=== PATIENT | female | born 1980 | race Caucasian/White ===

== ENCOUNTER → 2016-12-07 | Outpatient (REF) | payer OTHER ==
[2016-12-12 00:06] LABS: BENZODIAZEPINES, URINE SCREEN Negative ng/mL (Cutoff=200); METHADONE, URINE SCREEN Negative ng/mL (Cutoff=300); pH, URINE 5.6 (4.5-8.9)
== END ==
LOC: M LAB REF 17:09
PROVIDERS: ATTEND Nurse Practitioner Adult Health
DX: Z51.81 Encounter for therapeutic drug level monitoring (principal)

== ENCOUNTER → 2016-12-09 | Outpatient (REF) | payer OTHER | LOC: M LAB REF 17:26 | PROVIDERS: ATTEND Nurse Practitioner Adult Health | DX: R10.13 Epigastric pain (principal) ==

== ENCOUNTER → 2019-10-30 | Outpatient (CLI) | payer OTHER, MEDICAID ==
[2019-10-30 11:10] LABS: BASO % 0.2 % (0.0-1.0); EOS # 0.1 10^3/uL (0.0-0.5); EOS % 1.3 % (0.0-3.0); HEMATOCRIT 33.6 % (36.0-47.0); HEMOGLOBIN 10.1 g/dl (12.0-15.5); LYMPH # 2.3 10^3/uL (1.5-5.0); MEAN CORPUSCULAR HEMOGLOBIN 24.5 pg (27.0-33.0); MEAN CORPUSCULAR HGB CONC 30.1 g/dl (32.0-36.5); MEAN CORPUSCULAR VOLUME 81.4 fl (80.0-96.0); MONO # 0.5 10^3/uL (0.0-0.8); MONO % 5.9 % (0.0-5.0); NEUTROPHILS # 5.6 10^3/uL (1.5-8.5); NEUTROPHILS % 65.2 % (36.0-66.0); PLATELET COUNT, AUTOMATED 336 10^3/uL (150-450); RED BLOOD COUNT 4.13 10^6/uL (4.00-5.40); WHITE BLOOD COUNT 8.5 10^3/uL (4.0-10.0)
[2019-10-30 11:24] LABS: HEMOGLOBIN A1c 5.6 %
[2019-10-30 11:40] LABS: ALBUMIN 3.6 GM/DL (3.2-5.2); ALT/SGPT 16 U/L (12-78); BILIRUBIN,TOTAL 0.3 MG/DL (0.2-1.0); BLOOD UREA NITROGEN 14 MG/DL (7-18); CALCIUM LEVEL 8.3 MG/DL (8.5-10.1); CARBON DIOXIDE LEVEL 26 MEQ/L (21-32); CHLORIDE LEVEL 111 MEQ/L (98-107); CHOLESTEROL LEVEL 198 MG/DL (<200); CREATININE FOR GFR 0.69 MG/DL (0.55-1.30); FREE THYROXINE INDEX 2.1 % (1.3-4.8); GLOMERULAR FILTRATION RATE > 60.0 (>60); GLUCOSE, FASTING 86 MG/DL (70-100); HDL CHOLESTEROL 45 MG/DL (>40); LDL CHOLESTEROL 130 MG/DL (<100); NON-HDL-C 153 MG/DL; POTASSIUM SERUM 4.5 MEQ/L (3.5-5.1); SODIUM LEVEL 142 MEQ/L (136-145); T UPTAKE 30 % (30-39); TOTAL PROTEIN 6.7 GM/DL (6.4-8.2); TRIGLYCERIDES LEVEL 114 MG/DL (<150)
[2019-10-31 10:56] LABS: TOTAL 25(OH) VITAMIN D 21.8 NG/ML (30.0-100.0)
== END ==
LOC: M WUC 08:52
PROVIDERS: ATTEND Nurse Practitioner Psychiatric/Mental Health
DX: F32.9 Major depressive disorder, single episode, unspecified (principal)

== ENCOUNTER → 2020-01-02 | Outpatient (CLI) | payer OTHER ==
--- NOTE | 2020-01-02 18:12 | ECGEPIP ---
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
== END ==
LOC: M EKG 12:23
PROVIDERS: ATTEND Nurse Practitioner Psychiatric/Mental Health
DX: F32.9 Major depressive disorder, single episode, unspecified (principal); I45.10 Unspecified right bundle-branch block

== ENCOUNTER 2020-04-06 09:11 | Emergency (ER) | payer OTHER ==
[~2020-04-06] VITALS: Ht 165.1 cm; Wt 102.5 kg
--- OUTSIDE RECORDS SUMMARY | 2020-04-06 09:18 | CCD ---
Author Author Deborah Watters Organization Unknown Address [address] [address] Phone Care Team Providers Care Geotechnical Field Technician Name Role Phone DuongMatilde PCP Allergies, Adverse Reactions, Alerts No Data in Section Problem List Concept Problem Description Status Start Date Created Date Resolv ed Date Snomed Code F33.1 Major Depressive Disorder, Recurrent episode, Moderate Active 06/05/2019 06/05/2019 F60.3 Borderline Personality Disorder Active 01/29/20 20 F43.10 Posttraumatic Stress Disorde r (includes Posttraumatic Stress Disorder for Children 6 Years and Younger) Active 01/29/2020 Z72.0 Tobacco Use Disorder, Mild Active 01/29/2020 F12.10 Cannabis Use Disorder, Mild Active 01/29/2020 F90.9 Unspecified Attention-Deficit/Hyperactivity Disorder Activ e 01/29/2020 Medications No Data in Section Social History Social History Element Description Concept Effective Date Smoking Status Unknown if ever smoked [id number] Immunizations No Data in Section Vital Signs No Data in Section Procedures Date Concept Id Description Targeted Site Concept Targeted Site Concept Type 01/26/2020 50898 Brief Individual Psychotherapy - 30 min CPT Patient has no history of implantable de vices Encounters Encounter Start Date End Date Encounter Type Description Diagnosis Di agnosis Desc Location Author First Name Author Last Name Npid Taxonomy Cod e Taxonomy Desc Phone Number Location Addr1 Location Addr2 Location [facility] Location Sta te Location Zip [id number] 01/26/2020 01/26/2020 45706 Brief Individual Psychoth erapy - 30 min F33.1 Major depressive disorder, recurrent, moderate Communi ty [facility] Duong Clayton [phone] [id number] Elder Counselor [phone] [address] [address] Plan of Treatment No Data in Section Lab Results No Data in Section Instructions No Data in Section Insurance Providers Insurance Id Policy Effective Date Policy Thru Date Company [employer]van [id number] 2019 [employer] Managed Evie marin
--- OUTSIDE RECORDS SUMMARY | 2020-04-06 09:18 | CCD ---
Author Author Deborah Watters Organization Unknown Address [address] [place] [place] [address] Phone Care Team Providers Care Pedorthist Name Role Phone Matilde Watters PCP Allergies, Adverse Reactions, Alerts Concept Allergy Name Reaction Severity Onset Date Status Documentation Date Phone Number Npid Taxonomy Code Taxonomy Desc Author Last Name Author Jacey rst Name Concept Type 005427 Cipro Unknown Active 02/21/2020 [id number] Nurse Practitioner Sydney Marvni RXNORM 308816 bupropion Unknown Active 02/21/2020 [id number] 90 [id number] Nurse Practitioner Sydney Marvin RXNORM 573761 latex Unknown Active 02/21/2020 [id number] 3 [id number] Nurse Practitioner Sydney Marvin FDDC 332997 penicillin G Unknown Active 02/21/2020 [id number] 16 [id number] Nurse Practitioner Sydney Marvin RXNORM Problem List Concept Problem Description Status Start Date Created Date Resolv ed Date Snomed Code F90.2 Attention-Deficit/Hyperactivity Disorder, Combined pre sentation Active 03/18/2020 F43.10 Posttraumatic Stress Disorde r (includes Posttraumatic Stress Disorder for Children 6 Years and Younger) Active 03/18/2020 F33.1 Major Depressive Disorder, Recurrent episode, Moderate Active 06/05/2019 06/05/2019 F60.3 Borderline Personality Disorder Active 03/18/19 21 Z72.0 Tobacco Use Disorder, Mild Active 03/18/2020 F12.10 Cannabis Use Disorder, Mild Active 03/18/2020 Medications No Data in Section Social History Social History Element Description Concept Effective Date Smoking Status Unknown if ever smoked [id number] Immunizations No Data in Section Vital Signs No Data in Section Procedures Date Concept Id Description Targeted Site Concept Targeted Site Concept Type 03/15/2020 30971-11 TEMPMHCTelemed 30" Psychotherapy CPT Patient has no history of implantable de vices Encounters Encounter Start Date End Date Encounter Type Description Diagnosis Di agnosis Desc Location Author First Name Author Last Name Npid Taxonomy Cod e Taxonomy Desc Phone Number Location Addr1 Location Addr2 Location [facility] Location [facility] Location [facility] [id number] 03/15/2020 03/15/2020 65547-44 TEMPMHCTelemed 30" Psychothe rapy F90.2 Attention-deficit hyperactivity disorder, combined type [facility] Duong [place] [phone] [id number] Life Trainer [id number] [address] Plan of Treatment No Data in Section Lab Results No Data in Section Instructions No Data in Section Insurance Providers Insurance Id Policy Effective Date Policy Thru Date Company [employer] [id number] 2019 [employer] Managed Evie marin
--- OUTSIDE RECORDS SUMMARY | 2020-04-06 09:18 | CCD ---
Author Author Deborah Wattersisten Organization Unknown Address [address] [place] [address] Phone Unavailable Care Team Providers Care Director Foundation Name Role Phone Matilde Watters PCP Allergies, Adverse Reactions, Alerts Concept Allergy Name Reaction Severity Onset Date Status Documentation Date Phone Number Npid Taxonomy Code Taxonomy Desc Author Last Name Author Jacey rst Name Concept Type 064262 Cipro Unknown Active 02/21/2020 [id number] 3 [id number] Nurse Practitioner Sydney Marvin RXNORM 018056 bupropion Unknown Active 02/21/2020 [id number] 90 [id number] Nurse Practitioner Sydney Marvin RXNORM 609704 latex Unknown Active 02/21/2020 [id number] 3 [id number] Nurse Practitioner Sydney Marvin FDDC 108913 penicillin G Unknown Active 02/21/2020 [id number] 16 [id number] Nurse Practitioner Sydney Marvin RXNORM Problem List Concept Problem Description Status Start Date Created Date Resolv ed Date Snomed Code F33.1 Major Depressive Disorder, Recurrent episode, Moderate Active 06/05/2019 06/05/2019 F60.3 Borderline Personality Disorder Active 03/01/19 21 F43.10 Posttraumatic Stress Disorde r (includes Posttraumatic Stress Disorder for Children 6 Years and Younger) Active 03/01/2020 Z72.0 Tobacco Use Disorder, Mild Active 03/01/2020 F12.10 Cannabis Use Disorder, Mild Active 03/01/2020 F90.2 Attention-Deficit/Hyperactivity Disorder, Combined pre sentation Active 03/01/2020 Medications No Data in Section Social History Social History Element Description Concept Effective Date Smoking Status Unknown if ever smoked [id number] Immunizations No Data in Section Vital Signs No Data in Section Procedures Date Concept Id Description Targeted Site Concept Targeted Site Concept Type 02/28/2020 17086 Extended Individual Psychotherapy - 45 min CPT Patient has no history of implantable de vices Encounters Encounter Start Date End Date Encounter Type Description Diagnosis Di agnosis Desc Location Author First Name Author Last Name Npid Taxonomy Cod e Taxonomy Desc Phone Number Location Addr1 Location Addr2 Location [facility] Location [facility] Location [facility] [id number] 02/28/2020 02/28/2020 73953 Extended Individual Psych otherapy - 45 min F33.1 Major depressive disorder, recurrent, moderate Client's Home E kyung [place] [id number] [id number] Plaster Maker [id number] [address] [place] [address] Plan of Treatment No Data in Section Lab Results No Data in Section Instructions No Data in Section Insurance Providers Insurance Id Policy Effective Date Policy Thru Date [employer]van [id number] 2019 [employer] Managed Evie marin
--- OUTSIDE RECORDS SUMMARY | 2020-04-06 09:18 | CCD ---
Author Author Deborah Grimes Organization Unknown Address [address] [place] [place] [address] Phone Care Team Providers Care Service Liaison Representative Name Role Phone Yon Grimes PCP Allergies, Adverse Reactions, Alerts Concept Allergy Name Reaction Severity Onset Date Status Documentation Date Phone Number Npid Taxonomy Code Taxonomy Desc Author Last Name Author Jacey rst Name Concept Type 307409 Cipro Unknown Active 02/21/2020 [id number] 3 [id number] Nurse Practitioner Sydney Marvin RXNORM 305928 bupropion Unknown Active 02/21/2020 [id number] 90 [id number] Nurse Practitioner Sydney Marvin RXNORM 044347 latex Unknown Active 02/21/2020 [id number] 3 [id number] Nurse Practitioner Sydney Marvin FDDC 027542 penicillin G Unknown Active 02/21/2020 [id number] Nurse Practitioner Sydney Marvin RXNORM Problem List Concept Problem Description Status Start Date Created Date Resolv ed Date Snomed Code F33.1 Major Depressive Disorder, Recurrent episode, Moderate Active 06/05/2019 06/05/2019 F60.3 Borderline Personality Disorder Active 02/22/20 20 F43.10 Posttraumatic Stress Disorde r (includes Posttraumatic Stress Disorder for Children 6 Years and Younger) Active 02/22/2020 Z72.0 Tobacco Use Disorder, Mild Active 02/22/2020 F12.10 Cannabis Use Disorder, Mild Active 02/22/2020 F90.2 Attention-Deficit/Hyperactivity Disorder, Combined pre sentation Active 02/22/2020 Medications No Data in Section Social History Social History Element Description Concept Effective Date Smoking Status Unknown if ever smoked [id number] Immunizations No Data in Section Vital Signs Encounter Date Height Ins Weight Lbs Bmi Bp Systolic Bp Diastoli c Oxygen Saturation Respiration Rate Pulse Rate Body Temp Head Circumference Heigh t Lying 02/22/2020 0.00 0.00 0.00 0 0 0.00 0 0 0.00 0.0 0.0 0 Procedures Date Concept Id Description Targeted Site Concept Targeted Site Concept Type 02/22/2020 78751-90 [facility] Telemed E/M Lvl 3--Est pt CPT Patient has no history of implantable de vices Encounters Encounter Start Date End Date Encounter Type Description Diagnosis Di agnosis Desc Location Author First Name Author Last Name Npid Taxonomy Cod e Taxonomy Desc Phone Number Location Addr1 Location Addr2 Location [facility] Location Sta te Location [facility] [id number] 02/22/2020 02/22/2020 26903-11 [facility] Telemed E/M Lvl 3--Est p t F33.1 Major depressive disorder, recurrent, moderate [facility] [phone] [id number] Nurse Practitioner [phone] [address] [address] Plan of Treatment No Data in Section Lab Results No Data in Section Instructions No Data in Section Functional Cognitive Status No Data in Section Insurance Providers Insurance Id Policy Effective Date Policy Thru Date Transmension N mandy [id number] 2019 [employer] Managed Evie marin
--- OUTSIDE RECORDS SUMMARY | 2020-04-06 09:18 | CCD ---
Author Author [facility] Organization [facility] Address Unknown Phone Unavailable Care Team Providers Care Record Center Coordinator Name Role Phone Merritt Matilde Unavailable Scordo, M Kay PA Unavailable Unavailable Scordo, M Kay PA Unavailable Unavailable Scordo, M Kay PA Unavailable Unavailable Scordo, M Kay PA Unavailable Unavailable Scordo, M Kay PA Unavailable Unavailable Scordo, M Kay PA Unavailable Unavailable Scordo, M Kay PA Unavailable Unavailable Scordo, M Kay PA Unavailable Unavailable Scordo, M Kay PA Unavailable Unavailable Scordo, M Kay PA Unavailable Unavailable Scordo, M Kay PA Unavailable Unavailable Scordo, M Kay PA Unavailable Unavailable Scordo, M Kay PA Unavailable Unavailable Scordo, M Kay PA Unavailable Unavailable Scordo, M Kay PA Unavailable Unavailable Scordo, M Kay PA Unavailable Unavailable Scordo, M Kay PA Unavailable Unavailable Scordo, M Kay PA Unavailable Unavailable Scordo, M Kay PA Unavailable Unavailable Scordo, M Kay PA Unavailable Unavailable Scordo, M Kay PA Unavailable Unavailable Scordo, M Kay PA Unavailable Unavailable Scordo, M Kay PA Unavailable Unavailable Scordo, M Kay PA Unavailable Unavailable Scordo, M Kay PA Unavailable Unavailable Scordo, M Kay PA Unavailable Unavailable Scordo, M Kay PA Unavailable Unavailable Scordo, M Kay PA Unavailable Unavailable Scordo, M Kay PA Unavailable Unavailable Scordo, M Kay PA Unavailable Unavailable Scordo, M Kay PA Unavailable Unavailable Scordo, M Kay PA Unavailable Unavailable Scordo, M Kay PA Unavailable Unavailable Scordo, M Kay PA Unavailable Unavailable Scordo, M Kay PA Unavailable Unavailable Scordo, M Kay PA Unavailable Unavailable Scordo, M Kay PA Unavailable Unavailable Scordo, M Kay PA Unavailable Unavailable Scordo, M Kay PA Unavailable Unavailable Scordo, M Kay PA Unavailable Unavailable Scordo, M Kay PA Unavailable Unavailable Scordo, M Kay PA Unavailable Unavailable Alyssa [place] Unavailable [facility] Unavailable [phone] [facility] Unavailable [phone] Kika Guevara MANIPULATIVE THERAPY SPECIALIST MANIPULATIVE THERAPY SPECIALIST Unavailable Unavailable Faith Salinas Unavailable Mingo Grimes NP Unavailable Unavailable Re-disclosure Warning The records that you are about to access may contain information from federally-assisted alcohol or drug abuse programs. If such information is present, then the following federally mandated warning applies: This information has been disclosed to you from records protected by federal confidentiality rules (42 CFR part 2). The federal rules prohibit you from making any further disclosure of this information unless further disclosure is expressly permitted by the written consent of the person to whom it pertains or as otherwise permitted by 42 CFR part 2. A general authorization for the release of medical or other information is NOT sufficient for this purpose. The Federal rules restrict any use of the information to criminally investigate or prosecute any alcohol or drug abuse patient.The records that you are about to access may contain highly sensitive health information, the redisclosure of which is protected by Article 27-F of the [facility] Public Health law. If you continue you may have access to information: Regarding HIV / AIDS; Provided by facilities licensed or operated by the [facility] Office of Mental Health; or Provided by the [facility] Office for People With Developmental Disabilities. If such information is present, then the following [facility] mandated warning applies: This information has been disclosed to you from confidential records which are protected by state law. State law prohibits you from making any further disclosure of this information without the specific written consent of the person to whom it pertains, or as otherwise permitted by law. Any unauthorized further disclosure in violation of state law may result in a fine or assisted sentence or both. A general authorization for the release of medical or other information is NOT sufficient authorization for further disc losure. Allergies and Adverse Reactions Type Description Substance Reaction Status Data Source(s ) Propensity to adverse reactions to substance penicillin G 2 ML penicillin G benzathine [id number] UNT/ML Prefilled Syringe Active [facility] ([facility]) Propensity to adverse reactions to substance latex latex Active [facility] ([facility]) Propensity to adverse reactions to substance bupropion 24 HR Bupropion hydrobromide 174 MG Extended Release Oral Tablet Active [facility] ([facility]) Propensity to adverse reactions to substance Cipro Ciprofloxacin 500 MG Oral Tablet [Cipro] Active [facility] ([facility]) Family History Family Member Name Family Member Gender Family Member Status Date o f Status Description Data Source(s) Unknown Unknown Problem [facility] ([facility]) Encounters Encounter Providers Location Date Indications Data Source(s ) TEMPMHCTelemed 30" Psychotherapy Attender: Matilde Bang [facility] 03/15/2020 09:00:00 AM EST - 03/15/2020 09:00:00 AM EST [facility] ([facility]) Attender: Matilde Bang 03/15/2020 12:00:00 A M EST [facility] ([facility]) Extended Individual Psychotherapy - 45 min Attender: Raiza Bang [facility] 02/28/2020 09:00:00 AM EST - 02/28/2020 09:00:00 AM EST [facility] ([facility]) Attender: Matilde Bang 02/28/2020 12:00:00 A M EST [facility] ([facility]) Outpatient Attender: Yon Grimes NP [facility] 02/22/2020 10:00:00 AM EST - 02/22/2020 10:00:00 AM EST [facility] ([facility]) Attender: Yon Grimes NP 02/22/2020 12:00:00 AM EST [facility] ([facility]) Attender: Matilde Bang 02/12/2020 12:00:00 A M EST [facility] ([facility]) Extended Individual Psychotherapy - 45 min Attender: Raiza Bang [facility] 02/09/2020 08:15:00 AM EST - 02/09/2020 08:15:00 AM EST [facility] ([facility]) Brief Individual Psychotherapy - 30 min Attender: Matilde laguna [facility] 01/26/2020 08:15:00 AM EST - 01/26/2020 08:15:00 AM EST [facility] ([facility]) Attender: Matilde Bang 01/26/2020 12:00:00 A M EST [facility] ([facility]) Kay Dodd PA-C: [address] [place] [address], Ph. Attender: Kay AYALA - [facility] 01/25/2020 12:00:00 AM EST [facility] ([facility]) Brief Individual Psychotherapy - 30 min Attender: Alyssa salgado [facility] 01/02/2020 11:00:00 AM EST - 01/02/2020 11:00:00 AM EST [facility] ([facility]) Attender: Alyssa [place] 01/02/2020 12:00:00 AM EST [facility] ([facility]) [id number]"Psychotherapy [facility]: [facility] 08:00:00 AM EDT - 12/08/2019 08:00:00 AM EDT [facility] ([facility]) Attender: Matilde Bang 12/08/2019 12:00:00 A M EDT [facility] ([facility]) [id number]"Psychotherapy [facility] 11/28/2019 09:00:00 AM EDT - 11/28/2019 09:00:00 AM EDT [facility] ([facility]) Attender: Matilde Bang 11/28/2019 12:00:00 A M EDT [facility] ([facility]) [facility] Eval no med Attender: Faith Escobar [facility] 08/03/2019 02:00:00 AM EDT - 08/03/2019 02:00:00 AM EDT [facility] ([facility]) Attender: Faith Salinas 08/03/2019 12:00:00 AM EDT [facility] ([facility]) Outpatient Attender: JANET MENDEZ 08/01/2019 07:27:42 P M EDT [facility] [id number]"Psychotherapy Attender: Faith Salinas [facility] 07/24/2019 08:00:00 AM EDT - 07/24/2019 08:00:00 AM EDT [facility] ([facility]) Attender: Faith Salinas 07/24/2019 12:00:00 AM EDT [facility] ([facility]) Outpatient Attender: JANET MENDEZ 07/22/2019 12:06:06 A M EDT [facility] [id number]"Psychotherapy Attender: [facility] 06/05/2019 02:00:00 AM EDT - 06/05/2019 02:00:00 AM EDT [facility] ([facility]) Attender: [facility] 12:00:00 AM EDT [facility] ([facility]) Functional Status Medications Medication Brand Name Start Date Product Form Dose Route Admi nistrative Instructions Pharmacy Instructions Status Indications Reaction Description Data Source(s) Amphetamine aspartate 7.5 MG / Amphetami ne Sulfate 7.5 MG / Dextroamphetamine saccharate 7.5 MG / Dextroamphetamine Sulfate 7.5 MG Oral Tablet dextroamphetamine-amphetamine 30 mg tablet dextroamphetamine-amphetamine 30 mg tablet completed ampheta mine aspartate 7.5 MG / amphetamine sulfate 7.5 MG / dextroamphetamine saccharate 7.5 MG / dextroamphetamine sulfate 7.5 MG Oral Tablet [facility] ([facility]) lisdexamfetamine dimesylate 70 MG Oral C apsule [Vyvanse] Vyvanse 70 mg capsule TAKE 1 CAPSULE BY MOUTH IN THE MORNING . DO NOT EXCEED 1 PER 24 HOURS Vyvanse 70 mg capsule TAKE 1 CAPSULE BY MOUTH IN THE MORNING . DO NOT EXCEED 1 PER 24 HOURS completed lisdexa mfetamine dimesylate 70 MG Oral Capsule [Vyvanse] [facility] ([facility]) Fluconazole 150 MG Oral Tablet fluconazo le 150 mg tablet TAKE 1 TABLET BY MOUTH FOR ONE DOSE FOR FUNGAL INFECTION DIRECTED fluconazole 150 mg tablet TAKE 1 TABLET BY MOUTH FOR ONE DOSE FOR FUNGAL INFECTION DIRECTED completed fluconazole 150 MG Oral Tablet Stephy CRUZ ([facility]) Metronidazole 0.0075 MG/MG Vaginal Gel metronidazole 0 .75 % vaginal gel metronidazole 0.75 % vaginal gel compl eted metronidazole 0.0075 MG/MG Vaginal Gel [facility] ([facility]) Insurance Providers Payer name Policy type / Coverage type Policy ID Covered democrat ID Covered democrat's relationship to barr Policy Barr Plan Information [facility] COMMUNITY PLAN [facility] [id number] SP [id number] [id number] SP [id number] [facility] Community Plan P [id number] S [id number] Medicaid S [id number] S [id number] Managed Care - Community Plan [facility] P [id number] S [id number] [facility] [id number] [facility]-Medicaid [id number] [facility]-Medicaid [id number] [facility]-Medicaid [id number] [facility]-Medicaid [id number] [facility]-Medicaid [id number] [facility]-Medicaid [id number] [facility] [id number] [facility]-Medicaid [id number] [facility]-Medicaid [id number] [facility]-Medicaid [id number] [facility] [id number] [facility] Health Maintenance Organization (HMO) [id number] Self [id number] [facility] Health Maintenance Organization (HMO) [id number] Self [id number] [facility] [id number] SP [id number] [facility] Health Maintenance Organization (HMO) Self Managed Care - Community Plan [facility] P [id number] S [id number] Medicaid S [id number] S [id number] Managed Care - Community Plan [facility] P [id number] S [id number] Medicaid S [id number] S [id number] [facility] [id number] SP [id number] D Managed Care [facility] O [id number] S [id number] Managed Care BCBS O [id number] S [id number] Medicaid Dental O [id number] S [id number] D Managed Care [facility] O [id number] S [id number] Problems, Conditions, and Diagnoses Code Display Name Description Problem Type Effective Dates Data Source(s) F12.10 Cannabis abuse, uncomplicated Cannabis Use Disorder, M ild Condition 03/15/2020 12:00:00 AM [facility] Z72.0 Tobacco use Tobacco Use Disorder, Mild Condition 0 03/15/2020 12:00:00 AM EST [facility] ([facility]) F60.3 Borderline personality disorder Borderline Personality Disorder Condition 03/15/2020 12:00:00 AM EST [facility] ([facility]) F33.1 Major depressive disorder, recurrent, mo derate Major Depressive Disorder, Recurrent episode, Moderate Condition 03/15/2020 12:00:00 AM EST [facility] ([facility]) F43.10 Post-traumatic stress disorder, unspecif ied Posttraumatic Stress Disorder (includes Posttraumatic Stress Disorder for Children 6 Years and Younger) Condition 03/15/2020 12:00:00 AM EST [facility] ([facility]) F90.2 Attention-deficit hyperactivity disorder , combined type Attention- Deficit/Hyperactivity Disorder, Combined presentation Condition 03/15/2020 12:00:00 AM EST [facility] ([facility]) F90.2 Attention-deficit hyperactivity disorder , combined type Attention- Deficit/Hyperactivity Disorder, Combined presentation Condition 02/28/2020 12:00:00 AM EST [facility] ([facility]) F12.10 Cannabis abuse, uncomplicated Cannabis Use Disorder, M ild Condition 02/28/2020 12:00:00 AM EST [facility] ([facility]) Z72.0 Tobacco use Tobacco Use Disorder, Mild Condition 0 02/28/2020 12:00:00 AM EST [facility] ([facility]) F43.10 Post-traumatic stress disorder, unspecif ied Posttraumatic Stress Disorder (includes Posttraumatic Stress Disorder for Children 6 Years and Younger) Condition 02/28/2020 12:00:00 AM EST [facility] ([facility]) F60.3 Borderline personality disorder Borderline Personality Disorder Condition 02/28/2020 12:00:00 AM EST [facility] ([facility]) F33.1 Major depressive disorder, recurrent, mo derate Major Depressive Disorder, Recurrent episode, Moderate Condition 02/28/2020 12:00:00 AM EST [facility] ([facility]) F90.9 Attention-deficit hyperactivity disorder , unspecified type Unspecified Attention-Deficit/Hyperactivity Disorder Condition 02/12/2020 12:00:00 AM EST [facility] ([facility]) [id number] Asthma Asthma Problem 12/07/2019 05:58:12 PM ED T [facility] ([facility]) [id number] SNOMED CT Concept SNOMED CT Concept Problem 12/07 12:00:00 AM EDT - 01/25/2020 12:00:00 AM EST [facility] ([facility]) [id number] SNOMED CT Concept SNOMED CT Concept Problem 12/07 12:00:00 AM EDT - 01/25/2020 12:00:00 AM EST [facility] ([facility]) [id number] General finding of observation of patien t General Finding of Observation of Patient Problem 12/07/2014 12:00:00 AM EDT - 01/25/2020 12:00:00 AM EST [facility] ([facility]) [id number] Endocrine/metabolic screening Endocrine/metabolic Scre ening Problem 12/07/2014 12:00:00 AM EDT - 01/25/2020 12:00:00 AM EST [facility] ([facility]) [id number] Breast lump Breast Lump Problem 02/09/2014 12:0 0:00 AM EST - 01/25/2020 12:00:00 AM EST [facility] ([facility]) [id number] Evaluation procedure Evaluation Procedure Problem 07/19/2012 12:00:00 AM EDT - 01/25/2020 12:00:00 AM EST [facility] ([facility]) [id number] Finding of neck region Finding of Neck Region Problem 03/29/2012 12:00:00 AM EST - 01/25/2020 12:00:00 AM EST [facility] ([facility]) Surgeries/Procedures Procedure Description Date Indications Data Source(s) TEMPMHCTelemed 30" Psychotherapy 021 12:00:00 AM EST - 03/15/2020 12:00:00 AM EST [facility] ([facility]) TEMPMHCTelemed 30" Psychotherapy 03/15/2020 12:00:00 A M EST [facility] ([facility]) Extended Individual Psychotherapy - 45 min 02/28/2020 12:00:00 AM EST - 02/28/2020 12:00:00 AM EST [facility] ([facility]) Extended Individual Psychotherapy - 45 min 1 12:00:00 AM EST [facility] ([facility]) MHC Telemed E/M Lvl 3--Est pt 02/22/2020 12:00:00 AM EST - 02/22/2020 12:00:00 AM EST [facility] ([facility] MHC Telemed E/M Lvl 3--Est pt 02/22/2020 12:00:[address] [facility] ([facility]) Extended Individual Psychotherapy - 45 min 02/12/2020 12:00:00 AM EST - 02/12/2020 12:00:00 AM EST [facility] ([facility]) Extended Individual Psychotherapy - 45 min 0 12:00:00 AM EST [facility] ([facility]) Brief Individual Psychotherapy - 30 min 01/26/2020 12:00:00 AM EST - 01/26/2020 12:00:00 AM EST [facility] ([facility]) Brief Individual Psychotherapy - 30 min 01/26/2020 12: 00:00 AM EST [facility] ([facility]) Brief Individual Psychotherapy - 30 min 01/02/2020 12:00:00 AM EST - 01/02/2020 12:00:00 AM EST [facility] ([facility]) Brief Individual Psychotherapy - 30 min 01/02/2020 12: 00:00 AM EST [facility] ([facility]) [id number]"Psychotherapy 0 12:00:00 AM EDT - 12/08/2019 12:00:00 AM EDT [facility] ([facility]) [id number]"Psychotherapy 12/08/2019 12:00:00 AM EDT [facility] ([facility]) [id number]"Psychotherapy 0 12:00:00 AM EDT - 11/28/2019 12:00:00 AM EDT [facility] ([facility]) [id number]"Psychotherapy 11/28/2019 12:00:00 AM EDT [facility] ([facility]) MHC Telemed Diag Eval no med 08/03/2019 12:00:00 AM EDT - 08/03/2019 12:00:00 AM EDT [facility] ([facility]) MHC Telemed Diag Eval no med 08/03/2019 12:00:00 AM ED T [facility] ([facility]) [id number]"Psychotherapy 0 12:00:00 AM EDT - 07/24/2019 12:00:00 AM EDT [facility] ([facility]) [id number]"Psychotherapy 07/24/2019 12:00:00 AM EDT [facility] ([facility]) [id number]"Psychotherapy 0 12:00:00 AM EDT - 06/05/2019 12:00:00 AM EDT [facility] ([facility]) [id number]"Psychotherapy 06/05/2019 12:00:00 AM EDT [facility] ([facility]) Social History Code Duration Value Status Description Data Source(s ) Smoking 03/15/2020 12:00:00 AM EST Unknown if ever smoked comp leted Unknown if ever smoked [facility] ([facility]) Smoking 02/28/2020 12:00:00 AM EST Unknown if ever smoked comp leted Unknown if ever smoked [facility] ([facility]) Smoking 02/22/2020 12:00:00 AM EST Unknown if ever smoked comp leted Unknown if ever smoked [facility] ([facility]) Smoking 02/12/2020 12:00:00 AM EST Unknown if ever smoked comp leted Unknown if ever smoked [facility] ([facility]) Smoking 01/26/2020 12:00:00 AM EST Unknown if ever smoked comp leted Unknown if ever smoked [facility] ([facility]) Smoking 01/02/2020 12:00:00 AM EST Unknown if ever smoked comp leted Unknown if ever smoked [facility] ([facility]) Smoking 12/08/2019 12:00:00 AM EDT Unknown if ever smoked comp leted Unknown if ever smoked [facility] ([facility]) Smoking 11/28/2019 12:00:00 AM EDT Unknown if ever smoked comp leted Unknown if ever smoked [facility] ([facility]) Smoking 08/03/2019 12:00:00 AM EDT Unknown if ever smoked comp leted Unknown if ever smoked [facility] ([facility]) Smoking 07/24/2019 12:00:00 AM EDT Unknown if ever smoked comp leted Unknown if ever smoked [facility] ([facility]) Smoking 06/05/2019 12:00:00 AM EDT Unknown if ever smoked comp leted Unknown if ever smoked [facility] ([facility]) Vital Signs ID Date Data Source UNK Name Value Range Interpretation Code Description Data Source(s) Systolic blood pressure 0 mm[Hg] Normal (applies t o non-numeric results) 0 mm[Hg] [facility] ([facility]) Body mass index (BMI) [Ratio] 0.00 kg/m2 No rmal (applies to non-numeric results) 0.00 kg/m2 [facility] ([facility]) Body weight Measured 0.00 lbs Normal (applies to n on-numeric results) 0.00 lbs [facility] ([facility]) Body height 0.00 in Normal (applies to non-numeric resu lts) 0.00 in [facility] ([facility]) Diastolic blood pressure 0 mm[Hg] Normal (applies to non-numeric results) 0 mm[Hg] [facility] ([facility]) Body weight 3750 [oz_av] 3750 [oz_av] [facility] ([facility]) Systolic blood pressure 121 mm[Hg] 121 mm[Hg] A THENA ([facility]) Body mass index (BMI) [Ratio] 37.8 kg/m2 37.8 k g/m2 [facility] ([facility]) Body height 66 [in_i] 66 [in_i] SPEARMAN ([facility]) Diastolic blood pressure 76 mm[Hg] 76 mm[Hg] [facility] ([facility]) Patient Treatment Plan of Care Planned Activity Planned Date Details Description Data Source (s) lisdexamfetamine dimesylate 70 MG Oral Capsule [Vyvanse] [facility] ([facility]) Metronidazole 0.0075 MG/MG Vaginal Gel [facility] ([facility]) Fluconazole 150 MG Oral Tablet [facility] ([facility]) Amphetamine aspartate 7.5 MG / Amphetami ne Sulfate 7.5 MG / Dextroamphetamine saccharate 7.5 MG / Dextroamphetamine Sulfate 7.5 MG Oral Tablet [facility] ([facility])
--- OUTSIDE RECORDS SUMMARY | 2020-04-06 09:18 | CCD ---
Author Organization Unknown Address [address] [place] [address] Phone [phone] Care Team Providers Care Milk Pasteurizer Name Role Phone Kika Guevara Unavailable Unavailable Allergies Code Code System Name Reaction Severity Status Onset Wellbutrin Active 07/11/2012 7739341 RxNorm Latex Active 12/07/2014 Adhesive Tape Active 07/07/2016 723 RxNorm Amoxicillin Vomiting Moderate Active 2551 RxNorm Ciprofloxacin Vomiting Moderate Active Notes: CILLIN - Reaction: N/V, Dirrhea | MONISTAT - Reaction: guerrero Medications Name Status Start Date Stop Date albuterol sulfate HFA 90 mcg/actuation a erosol inhaler 2 puffs every 4-6 hours as needed for wheezing Active Not available dextroamphetamine-amphetamine 30 mg tablet Completed 01/25/2020 fluconazole 150 mg tablet TAKE 1 TABLET BY MOUTH FOR ONE DOSE FOR FUNGAL INFECTION DIRECTED Completed 01/25/2020 metronidazole 0.75 % vaginal gel Completed 01/25/2020 Vyvanse 40 mg capsule TAKE 1 CAPSULE BY MOUTH ONCE DAILY . DO NOT EXCEED 1 PER 24 HOURS Active Not available Vyvanse 70 mg capsule TAKE 1 CAPSULE BY MOUTH IN THE MORNING . DO NOT EXCEED 1 PER 24 HOURS Completed 01/25/2020 Problems Name Status Onset Date Source Attention Deficit Hyperactivity Disorder Active 013 History Lumbar Sprain Active 03/29/2012 History Finding of Neck Region Unknown 03/29/2012 History Depressive Disorder Active 05/18/2012 History Vitamin D Deficiency Active 07/19/2012 History Evaluation Procedure Unknown 07/19/2012 History Breast Lump Unknown 02/09/2014 History Endocrine/metabolic Screening Unknown 12/07/2014 Hi story General Finding of Observation of Patient Unknown 2014 History Pain in Right Hip Joint Active 12/07/[address] Concept Unknown 12/07/2014 History Chronic Tension-type Headache Active 12/23/2015 Hi story Allergic Rhinitis Active 12/23/2015 History Bipolar Disorder Active 07/07/2016 History Tobacco User Active 07/07/2016 History Hirsutism Active 07/07/2016 History Low Back Pain Active 07/07/2016 History Thoracogenic Scoliosis Active 07/07/2016 History Tingling of Skin Active 07/07/2016 History Nausea Active 07/07/2016 History Epigastric Pain Active 07/07/2016 History Body Mass Index 30+ - Obesity Active 12/07/[address] Concept Unknown 12/07/2016 History Asthma Active History Procedures Notes: DnC, Tonsils and adnoids, Tubes t ied, Results Lab Results None recorded. Past Encounters 01/25/2020 Fatigue; Skin Tag; Asthma; Electrocardiogram Abnormal; Obesity [facility]: [address] [place] [address], Ph. Social History Tobacco Smoking Status Former Smoker Vaccine List None recorded. Plan of Care Reminders Provider Appointments None recorded. Lab None recorded. Referral None recorded. Procedures None recorded. Surgeries None recorded. Imaging None recorded. Vitals Height Weight BMI Blood Pressure 66 in 234 lbs 6 oz 37.8 kg/m2 121/76 mm[Hg]"
--- OUTSIDE RECORDS SUMMARY | 2020-04-06 09:18 | CCD ---
Author Author Deborah Watters Organization Unknown Address [address] [address] Phone Care Team Providers Care Audio Visual Collections Coordinator Name Role Phone DuongJayMatilde PCP Allergies, Adverse Reactions, Alerts No Data in Section Problem List Concept Problem Description Status Start Date Created Date Resolv ed Date Snomed Code F33.1 Major Depressive Disorder, Recurrent episode, Moderate Active 06/05/2019 06/05/2019 F60.3 Borderline Personality Disorder Active 02/12/20 20 F43.10 Posttraumatic Stress Disorde r (includes Posttraumatic Stress Disorder for Children 6 Years and Younger) Active 02/12/2020 Z72.0 Tobacco Use Disorder, Mild Active 02/12/2020 F12.10 Cannabis Use Disorder, Mild Active 02/12/2020 F90.9 Unspecified Attention-Deficit/Hyperactivity Disorder Activ e 02/12/2020 Medications No Data in Section Social History Social History Element Description Concept Effective Date Smoking Status Unknown if ever smoked [id number] Immunizations No Data in Section Vital Signs No Data in Section Procedures Date Concept Id Description Targeted Site Concept Targeted Site Concept Type 02/09/2020 91021 Extended Individual Psychotherapy - 45 min CPT Patient has no history of implantable de vices Encounters Encounter Start Date End Date Encounter Type Description Diagnosis Di agnosis Desc Location Author First Name Author Last Name Npid Taxonomy Cod e Taxonomy Desc Phone Number Location Addr1 Location Addr2 Location [facility] Location Sta te Location Zip [id number] 02/09/2020 02/09/2020 26254 Extended Individual Psych otherapy - 45 min F33.1 Major depressive disorder, recurrent, moderate Communi ty [facility] Duong Clayton [phone] 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
[2020-04-06] MEDS ORDERED: AMPH1TAB2 (09:21)
[2020-04-06] MEDS ORDERED: BUSP15TA47 (09:21)
[2020-04-06] MEDS ORDERED: ALBU8.5H (09:21)
[2020-04-06] MEDS ORDERED: CLINDAMYCIN 900 MG in IV 1 EA IV ONE (09:45)
[2020-04-06] MEDS ORDERED: NS 1,000 ML IV ONE (09:45)
[2020-04-06] MEDS ORDERED: ONDANSETRON 4MG/2ML VIAL IV ONE (09:45)
--- OUTSIDE RECORDS SUMMARY | 2020-04-06 09:58 | CCD ---
Author Author [facility] Organization [facility] Address Unknown Phone Unavailable Care Team Providers Care Care Nurse Rn Name Role Phone MerrittJayMatilde Unavailable Scordo, M Kay PA Unavailable Unavailable Scordo, M Kay PA Unavailable Unavailable Scordo, M Kay PA Unavailable Unavailable Scordo, M Kay PA Unavailable Unavailable Scordo, M Kay PA Unavailable Unavailable Scordo, M Kya PA Unavailable Unavailable Scordo, M Kay PA [...] Kay PA Unavailable Unavailable Alyssa [place] Unavailable [facility] Unavailable [phone] [facility] Unavailable [phone] Kika Guevara FILLER SPREADER FILLER SPREADER Unavailable Unavailable Faith Salinas Unavailable Mingo Grimes [...] is protected by Article 27-F of the [facility] Public Health law. If you continue you may have access to information: Regarding HIV / AIDS; Provided by facilities licensed or operated by the [facility] Office of Mental Health; or Provided by the [facility] Office for People With Developmental Disabilities. If such information is present, then the following [facility] mandated warning applies: This information has been [...] law may result in a fine or mcfp sentence or both. A general authorization for the release of medical or other information is NOT sufficient authorization for further disc losure. Allergies and Adverse Reactions Type Description Substance Reaction Status Data Source(s ) Propensity to adverse reactions to substance penicillin G 2 ML penicillin G benzathine [id number] UNT/ML Prefilled Syringe Active [facility] ([facility]) Propensity to adverse reactions to substance latex latex Active [facility] ([facility]) Propensity to adverse reactions to substance bupropion 24 HR Bupropion hydrobromide 174 MG Extended Release Oral Tablet Active [facility] ([facility]) Propensity to adverse reactions to substance Cipro Ciprofloxacin 500 MG Oral Tablet [Cipro] Active [facility] ([facility]) Family History Family Member Name Family Member Gender Family Member Status Date o f Status Description Data Source(s) Unknown Unknown Problem [facility] ([facility]) Encounters Encounter Providers Location Date Indications Data Source(s ) [facility] Attender: Matilde Bang [facility] 03/15/2020 09:00:00 AM EST - 03/15/2020 09:00:00 AM EST [facility] ([facility]) Attender: Matilde Bang 03/15/2020 12:00:00 A M EST [facility] ([facility]) Extended Individual Psychotherapy - 45 min Attender: Raiza Bang [facility] 02/28/2020 09:00:00 AM EST - 02/28/2020 09:00:00 AM EST [facility] ([facility]) Attender: Matilde Bang 02/28/2020 12:00:00 A M EST [facility] ([facility]) Outpatient Attender: Yon Grimes NP [facility] 02/22/2020 10:00:00 AM EST - 02/22/2020 10:00:00 AM EST [facility] ([facility]) Attender: Yon Grimes NP 02/22/2020 12:00:00 AM EST [facility] ([facility]) Attender: Matilde Bang 02/12/2020 12:00:00 A M EST [facility] ([facility]) Extended Individual Psychotherapy - 45 min Attender: Raiza Bang [facility] 02/09/2020 08:15:00 AM EST - 02/09/2020 08:15:00 AM EST [facility] ([facility]) Brief Individual Psychotherapy - 30 min Attender: Matilde laguna [facility] 01/26/2020 08:15:00 AM EST - 01/26/2020 08:15:00 AM EST [facility] ([facility]) Attender: Matilde Bang 01/26/2020 12:00:00 A M EST [facility] ([facility]) Kay Dodd PA-C: [address] [place] [phone], Ph. Attender: Kay AYALA - [facility] Medical 01/25/2020 12:00:00 AM EST [facility] ([facility]) Brief Individual Psychotherapy - 30 min Attender: Alyssa salgado [facility] 01/02/2020 11:00:00 AM EST - 01/02/2020 11:00:00 AM EST [facility] ([facility]) Attender: Alyssa [place] 01/02/2020 12:00:00 AM EST [facility] ([facility]) [id number]"Psychotherapy [facility] 08:00:00 AM EDT - 12/08/2019 08:00:00 AM EDT [facility] ([facility]) Attender: Matilde Bagn 12/08/2019 12:00:00 A M EDT [facility] ([facility]) [id number]"Psychotherapy Att[facility]: [facility] 11/28/2019 09:00:00 AM EDT - 11/28/2019 09:00:00 AM EDT [facility] ([facility]) Attender: Matilde aBng 11/28/2019 12:00:00 A M EDT [facility] ([facility]) [facility]: [facility] 08/03/2019 02:00:00 AM EDT - 08/03/2019 02:00:00 AM EDT [facility] ([facility]) Attender: Faith Salinas 08/03/2019 12:00:00 AM EDT [facility] ([facility]) Outpatient Attender: JANET MENDEZ 08/01/2019 07:27:42 P M EDT [facility] [id number]"Psychotherapy [facility] 07/24/[facility] 08:00:00 AM EDT - 07/24/2019 08:00:00 AM EDT [facility] ([facility]) Attender: Faith Salinas 07/24/2019 12:00:00 AM EDT [facility] ([facility]) Outpatient Attender: JANET MENDEZ 07/22/2019 12:06:06 A M EDT [facility] [id number]"Psychotherapy Attender: [facility] 06/05/2019 02:00:00 AM EDT - 06/05/2019 02:00:00 AM EDT [facility] ([facility]) Attender: [facility] 12:00:00 AM EDT [facility] ([facility]) Functional Status Medications Medication Brand Name Start [...] dextroamphetamine sulfate 7.5 MG Oral Tablet [facility] ([facility]) lisdexamfetamine dimesylate 70 MG Oral C apsule [Vyvanse] Vyvanse 70 mg capsule TAKE 1 CAPSULE BY MOUTH IN THE MORNING . DO NOT EXCEED 1 PER 24 HOURS Vyvanse 70 mg capsule TAKE 1 CAPSULE BY MOUTH IN THE MORNING . DO NOT EXCEED 1 PER 24 HOURS completed lisdexa mfetamine dimesylate 70 MG Oral Capsule [Vyvanse] [facility] ([facility]) Fluconazole 150 MG Oral Tablet fluconazo le 150 mg tablet TAKE 1 TABLET BY MOUTH FOR ONE DOSE FOR FUNGAL INFECTION DIRECTED fluconazole 150 mg tablet TAKE 1 TABLET BY MOUTH FOR ONE DOSE FOR FUNGAL INFECTION DIRECTED completed fluconazole 150 MG Oral Tablet Stephy CRUZ ([facility]) Metronidazole 0.0075 MG/MG Vaginal Gel metronidazole 0 .75 % vaginal gel metronidazole 0.75 % vaginal gel compl eted metronidazole 0.0075 MG/MG Vaginal Gel [facility] ([facility]) Insurance Providers Payer name Policy type / Coverage type Policy ID Covered libertarian ID Covered libertarian's relationship to barr Policy Barr Plan Information [facility] COMMUNITY PLAN [facility] [id number] SP [id number] [id number] SP [id number] [facility] Community Plan P [id number] S [id number] Medicaid S [id number] S [id number] Managed Care - [facility] Plan [facility] P [id number] S [id number] [facility] [id number] [facility]-Medicaid [id number] [facility]-Medicaid [id number] [facility]-Medicaid [id number] [facility]-Medicaid [id number] [facility]-Medicaid [id number] [facility]-Medicaid [id number] [facility] [id number] [facility]icaid [id number] [facility]-Medicaid [id number] [facility]-Medicaid [id number] [facility] [id number] [facility] Health Maintenance Organization (HMO) [id number] Self [id number] [facility] Health Maintenance Organization (HMO) [id number] Self [id number] [facility] COMMUNITY PLAN MCDO [id number] SP [id number] [facility] Health Maintenance Organization (HMO) Self Managed Care - Community Plan [facility] P [id number] S [id number] Medicaid S [id number] S [id number] Managed Care - Community Plan [facility] P [id number] S [id number] Medicaid S [id number] S [id number] [facility] ENGEL PLAN [id number] SP [id number] D Managed Care [facility] O [id number] S [id number] Managed Care BCBS O [id number] S [id number] Medicaid Dental O [id number] S [id number] Managed Care [facility] O [id number] S [id number] Problems, Conditions, and Diagnoses Code Display Name Description Problem Type Effective Dates Data Source(s) F12.10 Cannabis abuse, uncomplicated Cannabis Use Disorder, M ild Condition 03/15/2020 12:00:00 AM EST [facility] ([facility]) Z72.0 Tobacco use Tobacco Use Disorder, Mild Condition 0 03/15/2020 12:00:00 AM EST [facility] ([facility]) F60.3 Borderline personality disorder Borderline Personality Disorder Condition 03/15/2020 12:00:00 AM EST [facility] ([facility]) F33.1 Major depressive disorder, recurrent, mo derate Major Depressive Disorder, Recurrent episode, Moderate Condition 03/15/2020 12:00:00 AM EST [facility] ([facility]) F43.10 Post-traumatic stress disorder, unspecif ied Posttraumatic Stress Disorder (includes Posttraumatic Stress Disorder for Children 6 Years and Younger) Condition 03/15/2020 12:00:00 AM EST [facility] ([facility]) F90.2 Attention-deficit hyperactivity disorder , combined type Attention- Deficit/Hyperactivity Disorder, Combined presentation Condition 03/15/2020 12:00:00 AM EST [facility] ([facility]) F90.2 Attention-deficit hyperactivity disorder , combined type Attention- Deficit/Hyperactivity Disorder, Combined presentation Condition 02/28/2020 12:00:00 AM EST [facility] ([facility]) F12.10 Cannabis abuse, uncomplicated Cannabis Use Disorder, M ild Condition 02/28/2020 12:00:00 AM EST [facility] ([facility]) Z72.0 Tobacco use Tobacco Use Disorder, Mild Condition 0 02/28/2020 12:00:00 AM EST [facility] ([facility]) F43.10 Post-traumatic stress disorder, unspecif ied Posttraumatic Stress Disorder (includes Posttraumatic Stress Disorder for Children 6 Years and Younger) Condition 02/28/2020 12:00:00 AM EST [facility] ([facility]) F60.3 Borderline personality disorder Borderline Personality Disorder Condition 02/28/2020 12:00:00 AM EST [facility] ([facility]) F33.1 Major depressive disorder, recurrent, mo derate Major Depressive Disorder, Recurrent episode, Moderate Condition 02/28/2020 12:00:00 AM EST [facility] ([facility]) F90.9 Attention-deficit hyperactivity disorder , unspecified type Unspecified Attention-Deficit/Hyperactivity Disorder Condition 02/12/2020 12:00:00 AM EST [facility] ([facility]) [id number] Asthma Asthma Problem 12/07/2019 05:58:12 PM ED T [facility] ([facility]) [id number] SNOMED CT Concept SNOMED CT Concept Problem 12/07 12:00:00 AM EDT - 01/25/2020 12:00:00 AM EST [facility] ([facility]) [id number] SNOMED CT Concept SNOMED CT Concept Problem 12/07 12:00:00 AM EDT - 01/25/2020 12:00:00 AM EST [facility] ([facility]) [id number] General finding of observation of patien t General Finding of Observation of Patient Problem 12/07/2014 12:00:00 AM EDT - 01/25/2020 12:00:00 AM EST [facility] ([facility]) [id number] Endocrine/metabolic screening Endocrine/metabolic Scre ening Problem 12/07/2014 12:00:00 AM EDT - 01/25/2020 12:00:00 AM EST [facility] ([facility]) [id number] Breast lump Breast Lump Problem 02/09/2014 12:0 0:00 AM EST - 01/25/2020 12:00:00 AM EST [facility] ([facility]) [id number] Evaluation procedure Evaluation Procedure Problem 07/19/2012 12:00:00 AM EDT - 01/25/2020 12:00:00 AM EST [facility] ([facility]) [id number] Finding of neck region Finding of Neck Region Problem 03/29/2012 12:00:00 AM EST - 01/25/2020 12:00:00 AM EST [facility] ([facility]) Surgeries/Procedures Procedure Description Date Indications Data Source(s) TEMPMHCTelemed 30" Psychotherapy 021 12:00:00 AM EST - 03/15/2020 12:00:00 AM EST [facility] ([facility]) TEMPMHCTelemed 30" Psychotherapy 03/15/2020 12:00:00 A M EST [facility] ([facility]) Extended Individual Psychotherapy - 45 min 02/28/2020 12:00:00 AM EST - 02/28/2020 12:00:00 AM EST [facility] ([facility] Extended Individual Psychotherapy - 45 min 1 12:00:00 AM EST [facility] ([facility]) MHC Telemed E/M Lvl 3--Est pt 02/22/2020 12:00:00 AM EST - 02/22/2020 12:00:00 AM EST [facility] ([facility]) MHC Telemed E/M Lvl 3--Est pt 02/22/2020 12:00:[address] [facility] ([facility]) Extended Individual Psychotherapy - 45 min 02/12/2020 12:00:00 AM EST - 02/12/2020 12:00:00 AM EST [facility] ([facility]) Extended Individual Psychotherapy - 45 min 0 12:00:00 AM EST [facility] ([facility]) Brief Individual Psychotherapy - 30 min 01/26/2020 12:00:00 AM EST - 01/26/2020 12:00:00 AM EST [facility] ([facility]) Brief Individual Psychotherapy - 30 min 01/26/2020 12: 00:00 AM EST [facility] ([facility]) Brief Individual Psychotherapy - 30 min 01/02/2020 12:00:00 AM EST - 01/02/2020 12:00:00 AM EST [facility] ([facility]) Brief Individual Psychotherapy - 30 min 01/02/2020 12: 00:00 AM EST [facility] ([facility]) [id number]"Psychotherapy 0 12:00:00 AM EDT - 12/08/2019 12:00:00 AM EDT [facility] ([facility]) [id number]"Psychotherapy 12/08/2019 12:00:00 AM EDT [facility] ([facility]) [id number]"Psychotherapy 0 12:00:00 AM EDT - 11/28/2019 12:00:00 AM EDT [facility] ([facility]) [id number]"Psychotherapy 11/28/2019 12:00:00 AM EDT [facility] ([facility]) MHC Telemed Diag Eval no med 08/03/2019 12:00:00 AM EDT - 08/03/2019 12:00:00 AM EDT [facility] ([facility]) MHC Telemed Diag Eval no med 08/03/2019 12:00:00 AM ED T [facility] ([facility]) [id number]"Psychotherapy 0 12:00:00 AM EDT - 07/24/2019 12:00:00 AM EDT [facility] ([facility]) [id number]"Psychotherapy 07/24/2019 12:00:00 AM EDT [facility] ([facility]) [id number]"Psychotherapy 0 12:00:00 AM EDT - 06/05/2019 12:00:00 AM EDT [facility] ([facility]) [id number]"Psychotherapy 06/05/2019 12:00:00 AM EDT [facility] ([facility]) Social History Code Duration Value Status Description Data Source(s ) Smoking 03/15/2020 12:00:00 AM EST Unknown if ever smoked comp leted Unknown if ever smoked [facility] ([facility]) Smoking 02/28/2020 12:00:00 AM EST Unknown if ever smoked comp leted Unknown if ever smoked [facility] ([facility]) Smoking 02/22/2020 12:00:00 AM EST Unknown if ever smoked comp leted Unknown if ever smoked [facility] ([facility]) Smoking 02/12/2020 12:00:00 AM EST Unknown if ever smoked comp leted Unknown if ever smoked [facility] ([facility]) Smoking 01/26/2020 12:00:00 AM EST Unknown if ever smoked comp leted Unknown if ever smoked [facility] ([facility]) Smoking 01/02/2020 12:00:00 AM EST Unknown if ever smoked comp leted Unknown if ever smoked [facility] ([facility]) Smoking 12/08/2019 12:00:00 AM EDT Unknown if ever smoked comp leted Unknown if ever smoked [facility] ([facility]) Smoking 11/28/2019 12:00:00 AM EDT Unknown if ever smoked comp leted Unknown if ever smoked [facility] ([facility]) Smoking 08/03/2019 12:00:00 AM EDT Unknown if ever smoked comp leted Unknown if ever smoked [facility] ([facility]) Smoking 07/24/2019 12:00:00 AM EDT Unknown if ever smoked comp leted Unknown if ever smoked [facility] ([facility]) Smoking 06/05/2019 12:00:00 AM EDT Unknown if ever smoked comp leted Unknown if ever smoked [facility] ([facility]) Vital Signs ID Date Data Source UNK Name Value Range Interpretation Code Description Data Source(s) Systolic blood pressure 0 mm[Hg] Normal (applies t o non-numeric results) 0 mm[Hg] [facility] ([facility]) Body mass index (BMI) [Ratio] 0.00 kg/m2 No rmal (applies to non-numeric results) 0.00 kg/m2 [facility] ([facility]) Body weight Measured 0.00 lbs Normal (applies to n on-numeric results) 0.00 lbs [facility] ([facility]) Body height 0.00 in Normal (applies to non-numeric resu lts) 0.00 in [facility] ([facility]) Diastolic blood pressure 0 mm[Hg] Normal (applies to non-numeric results) 0 mm[Hg] [facility] ([facility]) Body weight 3750 [oz_av] 3750 [oz_av] [facility] ([facility]) Systolic blood pressure 121 mm[Hg] 121 mm[Hg] A THENA ([facility]) Body mass index (BMI) [Ratio] 37.8 kg/m2 37.8 k g/m2 [facility] ([facility]) Body height 66 [in_i] 66 [in_i] [place] ([facility]) Diastolic blood pressure 76 mm[Hg] 76 mm[Hg] [place] ([facility]) Patient Treatment Plan of Care Planned Activity Planned Date Details Description Data Source (s) lisdexamfetamine dimesylate 70 MG Oral Capsule [Vyvanse] [place] ([facility]) Metronidazole 0.0075 MG/MG Vaginal Gel [facility] ([facility]) Fluconazole 150 MG Oral Tablet [place] ([facility]) Amphetamine aspartate 7.5 MG / Amphetami ne Sulfate 7.5 MG / Dextroamphetamine saccharate 7.5 MG / Dextroamphetamine Sulfate 7.5 MG Oral Tablet [facility] ([facility])
[2020-04-06 10:02] LABS: BASO % 0.2 % (0.0-1.0); EOS % 0.4 % (0.0-3.0); HEMATOCRIT 38.8 % (36.0-47.0); HEMOGLOBIN 12.2 g/dl (12.0-15.5); LYMPH # 1.4 10^3/uL (1.5-5.0); LYMPH % 15.7 % (24.0-44.0); MEAN CORPUSCULAR HEMOGLOBIN 27.7 pg (27.0-33.0); MEAN CORPUSCULAR HGB CONC 31.4 g/dl (32.0-36.5); MONO # 0.3 10^3/uL (0.0-0.8); MONO % 3.4 % (2.0-8.0); NEUTROPHILS # 7.1 10^3/uL (1.5-8.5); NEUTROPHILS % 80.1 % (36.0-66.0); PLATELET COUNT, AUTOMATED 300 10^3/uL (150-450); RED BLOOD COUNT 4.41 10^6/uL (4.00-5.40); WHITE BLOOD COUNT 8.9 10^3/uL (4.0-10.0)
[2020-04-06 10:26] LABS: BLOOD UREA NITROGEN 12 MG/DL (7-18); CALCIUM LEVEL 8.5 MG/DL (8.5-10.1); CARBON DIOXIDE LEVEL 24 MEQ/L (21-32); CHLORIDE LEVEL 106 MEQ/L (98-107); CREATININE FOR GFR 0.76 MG/DL (0.55-1.30); GLOMERULAR FILTRATION RATE > 60.0 (>60); GLUCOSE, FASTING 98 MG/DL (70-100); POTASSIUM SERUM 3.7 MEQ/L (3.5-5.1); SODIUM LEVEL 139 MEQ/L (136-145)
[2020-04-06] MEDS ORDERED: KETOROLAC 30 MG/ML 1ML VIAL IV ONE (11:15)
[2020-04-06] MEDS ORDERED: ONDA4TAB6 PO (11:37)
[2020-04-06] MEDS ORDERED: CLEO300C2 PO (11:37)
[2020-04-06 11:53] VITALS: BP 133/86
[2020-04-06] MEDS ORDERED: DIFL150T PO (11:55)
== END 2020-04-06 11:56 | disposition home or self-care (01) ==
LOC: M ED 09:11
DX: K04.7 Periapical abscess without sinus (principal); F33.9 Major depressive disorder, recurrent, unspecified; F41.9 Anxiety disorder, unspecified; F43.10 Post-traumatic stress disorder, unspecified; F90.9 Attention-deficit hyperactivity disorder, unspecified type; Z79.899 Other long term (current) drug therapy; Z88.0 Allergy status to penicillin; Z88.1 Allergy status to other antibiotic agents; J30.2 Other seasonal allergic rhinitis
CPT/HCPCS: 36415; 80048; 85025; 86140; 96361; 96365; 96375; 99284; J1885; J2405

== ENCOUNTER → 2020-08-19 | Outpatient (CLI) | payer OTHER ==
[~2020-08-19] MED LIST: ALBU8.5H; AMPH1TAB2; BUSP15TA47; CLEO300C2 PO; DIFL150T PO; ONDA4TAB6 PO
--- NOTE | 2020-08-19 16:21 | REP ---
INDICATION: ATRAUMATIC CHRONIC NECK PAIN COMPARISON: 03/08/2013 TECHNIQUE: 8 views FINDINGS: There is disc space narrowing seen at the C5-6 level which has increased from the prior exam and seen in conjunction with anterior and posterior osteophytic ridging. Flexion and extension does not appear to be limited radiographically. Vertebral body height and alignment is within normal limits. There is an unchanged slight cervical kyphosis. The facet joints are well aligned bilaterally. The intervertebral foramina are ample bilaterally. IMPRESSION: Chronic changes as described above. <Electronically signed by Fausto Pagan > 08/19/20 [id number]
[2020-08-19 17:09] LABS: BASO % 0.3 % (0.0-1.0); EOS # 0.1 10^3/uL (0.0-0.5); HEMATOCRIT 37.8 % (36.0-47.0); HEMOGLOBIN 11.6 g/dl (12.0-15.5); LYMPH # 1.9 10^3/uL (1.5-5.0); LYMPH % 17.6 % (24.0-44.0); MEAN CORPUSCULAR HEMOGLOBIN 27.6 pg (27.0-33.0); MEAN CORPUSCULAR HGB CONC 30.7 g/dl (32.0-36.5); MEAN CORPUSCULAR VOLUME 89.8 fl (80.0-96.0); MONO # 0.5 10^3/uL (0.0-0.8); MONO % 4.6 % (2.0-8.0); NEUTROPHILS # 8.1 10^3/uL (1.5-8.5); PLATELET COUNT, AUTOMATED 369 10^3/uL (150-450); RED BLOOD COUNT 4.21 10^6/uL (4.00-5.40); WHITE BLOOD COUNT 10.7 10^3/uL (4.0-10.0)
[2020-08-19 17:31] LABS: HEMOGLOBIN A1c 5.4 %
[2020-08-19 17:43] LABS: ALBUMIN 3.8 GM/DL (3.2-5.2); ALT/SGPT 22 U/L (12-78); BILIRUBIN,TOTAL 0.3 MG/DL (0.2-1.0); BLOOD UREA NITROGEN 8 MG/DL (7-18); CALCIUM LEVEL 8.6 MG/DL (8.5-10.1); CARBON DIOXIDE LEVEL 26 MEQ/L (21-32); CHLORIDE LEVEL 109 MEQ/L (98-107); CHOLESTEROL LEVEL 216 MG/DL (<200); CREATININE FOR GFR 0.68 MG/DL (0.55-1.30); GLOMERULAR FILTRATION RATE > 60.0 (>60); GLUCOSE, FASTING 81 MG/DL (70-100); HDL CHOLESTEROL 36 MG/DL (>40); LDL CHOLESTEROL 149 MG/DL (<100); NON-HDL-C 180 MG/DL; POTASSIUM SERUM 3.8 MEQ/L (3.5-5.1); SODIUM LEVEL 143 MEQ/L (136-145); THYROID STIMULATING HORMONE 0.618 uIU/ML (0.358-3.740); TRIGLYCERIDES LEVEL 154 MG/DL (<150)
== END ==
LOC: M PLAIMG 15:04
PROVIDERS: ATTEND Nurse Practitioner Family
DX: E78.5 Hyperlipidemia, unspecified (principal); Z13.228 Encounter for screening for other metabolic disorders; M99.71 Connective tissue and disc stenosis of intervertebral foramina of cervical region; M40.202 Unspecified kyphosis, cervical region; M25.78 Osteophyte, vertebrae

== ENCOUNTER → 2021-08-05 | Outpatient (CLI) | payer OTHER ==
[2021-08-05 18:20] LABS: BASO % 0.4 % (0.0-1.0); EOS # 0.2 10^3/uL (0.0-0.5); EOS % 1.5 % (0.0-3.0); HEMATOCRIT 36.4 % (36.0-47.0); HEMOGLOBIN 10.8 g/dl (12.0-15.5); LYMPH % 20.1 % (24.0-44.0); MEAN CORPUSCULAR HEMOGLOBIN 24.3 pg (27.0-33.0); MEAN CORPUSCULAR HGB CONC 29.7 g/dl (32.0-36.5); MEAN CORPUSCULAR VOLUME 81.8 fl (80.0-96.0); MONO # 0.6 10^3/uL (0.0-0.8); MONO % 6.1 % (2.0-8.0); NEUTROPHILS # 7.1 10^3/uL (1.5-8.5); NEUTROPHILS % 71.7 % (36.0-66.0); PLATELET COUNT, AUTOMATED 356 10^3/uL (150-450); RED BLOOD COUNT 4.45 10^6/uL (4.00-5.40); WHITE BLOOD COUNT 9.9 10^3/uL (4.0-10.0)
[2021-08-05 18:39] LABS: ALBUMIN 3.9 GM/DL (3.2-5.2); ALT/SGPT 13 U/L (12-78); BILIRUBIN,TOTAL 0.2 MG/DL (0.2-1.0); BLOOD UREA NITROGEN 15 MG/DL (7-18); CALCIUM LEVEL 8.8 MG/DL (8.5-10.1); CARBON DIOXIDE LEVEL 25 MEQ/L (21-32); CHLORIDE LEVEL 107 MEQ/L (98-107); CHOLESTEROL LEVEL 213 MG/DL (<200); CHOLESTEROL RISK RATIO 4.953 (<5); CREATININE FOR GFR 0.82 MG/DL (0.55-1.30); GLOMERULAR FILTRATION RATE > 60.0 (>58); GLUCOSE, FASTING 88 MG/DL (70-100); HDL CHOLESTEROL 43 MG/DL (>40); LDL CHOLESTEROL 144 MG/DL (<100); MAGNESIUM LEVEL 1.9 MG/DL (1.8-2.4); NON-HDL-C 170 MG/DL; POTASSIUM SERUM 4.2 MEQ/L (3.5-5.1); SODIUM LEVEL 139 MEQ/L (136-145); TOTAL PROTEIN 7.2 GM/DL (6.4-8.2); TRIGLYCERIDES LEVEL 131 MG/DL (<150)
[2021-08-05 18:47] LABS: TOTAL 25(OH) VITAMIN D 17.1 NG/ML (30.0-100.0); VITAMIN B12 LEVEL 280 PG/ML (247-911)
== END ==
LOC: M PLALAB 14:08
PROVIDERS: ATTEND Nurse Practitioner Family
DX: R20.0 Anesthesia of skin (principal); E78.5 Hyperlipidemia, unspecified; E55.9 Vitamin D deficiency, unspecified

== ENCOUNTER 2021-12-15 18:54 | Emergency (ER) | payer OTHER ==
[~2021-12-15] VITALS: Ht 165.1 cm; Wt 98.6 kg
[2021-12-15] MEDS ORDERED: ADDE30TA PO (19:14)
[2021-12-15] MEDS ORDERED: VYVA60CA PO (19:14)
[2021-12-16 06:06] VITALS: BP 137/71
[2021-12-16] MEDS ORDERED: BOOSTRIX/ADACEL VACCINE (DIPHTH/PERTUSS/ACELL/TETANUS) 0.5ML SYR IM ONE (07:15)
== END 2021-12-16 08:29 | disposition home or self-care (01) ==
LOC: M ED 18:54
DX: R21 Rash and other nonspecific skin eruption (principal); S80.861A Insect bite (nonvenomous), right lower leg, initial encounter; S80.862A Insect bite (nonvenomous), left lower leg, initial encounter; W57.XXXA Bitten or stung by nonvenomous insect and other nonvenomous arthropods, initial encounter; J45.909 Unspecified asthma, uncomplicated; F31.9 Bipolar disorder, unspecified; F43.10 Post-traumatic stress disorder, unspecified; F41.9 Anxiety disorder, unspecified; F90.9 Attention-deficit hyperactivity disorder, unspecified type; Z87.891 Personal history of nicotine dependence; Z88.0 Allergy status to penicillin; Z88.1 Allergy status to other antibiotic agents; Z79.51 Long term (current) use of inhaled steroids; Z79.899 Other long term (current) drug therapy; Z23 Encounter for immunization

== ENCOUNTER → 2022-01-28 | Outpatient (CLI) | payer OTHER ==
[~2022-01-28] MED LIST changes: +ADDE30TA PO; +VYVA60CA PO
[2022-01-28 15:04] LABS: BASO % 0.4 % (0.0-1.0); EOS # 0.4 10^3/uL (0.0-0.5); EOS % 5.5 % (0.0-3.0); HEMATOCRIT 32.5 % (36.0-47.0); HEMOGLOBIN 9.5 g/dl (12.0-15.5); LYMPH # 2.1 10^3/uL (1.5-5.0); LYMPH % 26.9 % (24.0-44.0); MEAN CORPUSCULAR HEMOGLOBIN 24.3 pg (27.0-33.0); MEAN CORPUSCULAR HGB CONC 29.2 g/dl (32.0-36.5); MEAN CORPUSCULAR VOLUME 83.1 fl (80.0-96.0); MONO # 0.6 10^3/uL (0.0-0.8); MONO % 7.6 % (2.0-8.0); NEUTROPHILS # 4.7 10^3/uL (1.5-8.5); NEUTROPHILS % 59.2 % (36.0-66.0); PLATELET COUNT, AUTOMATED 400 10^3/uL (150-450); RED BLOOD COUNT 3.91 10^6/uL (4.00-5.40); WHITE BLOOD COUNT 7.9 10^3/uL (4.0-10.0)
[2022-01-28 15:07] LABS: ALBUMIN 3.5 G/DL (3.2-5.2); ALKALINE PHOSPHATASE 37 U/L (46-116); ALT/SGPT < 9 U/L (7.0-40); AST/SGOT 7.99999 U/L (<34); BILIRUBIN,TOTAL < 0.2 MG/DL (0.3-1.2); BLOOD UREA NITROGEN 16 MG/DL (9-23); CALCIUM LEVEL 8.9 MG/DL (8.5-10.1); CARBON DIOXIDE LEVEL 31 MMOL/L (20-31); CHLORIDE LEVEL 103 MMOL/L (98-107); CHOLESTEROL LEVEL 158 MG/DL (<200); CHOLESTEROL RISK RATIO 4.07 (<5); CREATININE FOR GFR 0.76 MG/DL (0.55-1.30); FREE T4 0.95 NG/DL (0.89-1.76); GLOMERULAR FILTRATION RATE > 60.0 (>58); GLUCOSE, FASTING 87 MG/DL (60-100); HDL CHOLESTEROL 38.8 MG/DL (>40); LDL CHOLESTEROL 86.4 MG/DL (<100); NON-HDL-C 119 MG/DL; POTASSIUM SERUM 4.4 MMOL/L (3.5-5.1); SODIUM LEVEL 139 MMOL/L (136-145); THYROID STIMULATING HORMONE 1.021 uIU/ML (0.55-4.78); TOTAL 25(OH) VITAMIN D 30.1 NG/ML (20.0-100.0); TOTAL PROTEIN 6.3 G/DL (5.7-8.2); TRIGLYCERIDES LEVEL 164 MG/DL (<150); VITAMIN B12 LEVEL > 2000 PG/ML (211-911)
== END ==
LOC: M PLALAB 09:09
PROVIDERS: ATTEND Nurse Practitioner Family
DX: E78.5 Hyperlipidemia, unspecified (principal); E55.9 Vitamin D deficiency, unspecified; E53.8 Deficiency of other specified B group vitamins; F31.9 Bipolar disorder, unspecified

== ENCOUNTER → 2022-09-01 | Outpatient (CLI) | payer OTHER ==
[2022-09-01 14:49] LABS: ALBUMIN 4.1 G/DL (3.2-5.2); ALKALINE PHOSPHATASE 57 U/L (46-116); ALT/SGPT 16 U/L (7.0-40); AST/SGOT < 8 U/L (<34); BILIRUBIN,TOTAL 0.5 MG/DL (0.3-1.2); BLOOD UREA NITROGEN 14 MG/DL (9-23); CALCIUM LEVEL 9.3 MG/DL (8.5-10.1); CARBON DIOXIDE LEVEL 27 MMOL/L (20-31); CHLORIDE LEVEL 104 MMOL/L (98-107); CHOLESTEROL LEVEL 193 MG/DL (<200); CHOLESTEROL RISK RATIO 4.86 (<5); CREATININE FOR GFR 0.78 MG/DL (0.55-1.30); GLOMERULAR FILTRATION RATE > 60.0 (>58); GLUCOSE, FASTING 91 MG/DL (60-100); HDL CHOLESTEROL 39.7 MG/DL (>40); LDL CHOLESTEROL 95.5 MG/DL (<100); NON-HDL-C 153.3 MG/DL; POTASSIUM SERUM 4.2 MMOL/L (3.5-5.1); SODIUM LEVEL 138 MMOL/L (136-145); TRIGLYCERIDES LEVEL 289 MG/DL (<150)
[2022-09-01 14:52] LABS: TOTAL 25(OH) VITAMIN D 45.3 NG/ML (20.0-100.0)
[2022-09-01 14:53] LABS: BASO # 0.1 10^3/uL (0.0-0.2); BASO % 0.4 % (0.0-1.0); EOS # 0.3 10^3/uL (0.0-0.5); EOS % 2.2 % (0.0-3.0); HEMATOCRIT 46.1 % (36.0-47.0); LYMPH # 3.3 10^3/uL (1.5-5.0); LYMPH % 25.8 % (24.0-44.0); MEAN CORPUSCULAR HEMOGLOBIN 31.4 pg (27.0-33.0); MEAN CORPUSCULAR HGB CONC 32.5 g/dl (32.0-36.5); MEAN CORPUSCULAR VOLUME 96.4 fl (80.0-96.0); MONO # 0.7 10^3/uL (0.0-0.8); MONO % 5.6 % (2.0-8.0); NEUTROPHILS # 8.3 10^3/uL (1.5-8.5); NEUTROPHILS % 65.8 % (36.0-66.0); PLATELET COUNT, AUTOMATED 353 10^3/uL (150-450); RED BLOOD COUNT 4.78 10^6/uL (4.00-5.40); VITAMIN B12 LEVEL 1081 PG/ML (211-911); WHITE BLOOD COUNT 12.6 10^3/uL (4.0-10.0)
== END ==
LOC: M PLAIMG 09:53
PROVIDERS: ATTEND Nurse Practitioner Family
DX: M48.02 Spinal stenosis, cervical region (principal); E78.5 Hyperlipidemia, unspecified; E55.9 Vitamin D deficiency, unspecified; E53.8 Deficiency of other specified B group vitamins; M50.322 Other cervical disc degeneration at C5-C6 level

== ENCOUNTER 2022-10-23 14:14 | Emergency (ER) | payer OTHER ==
[~2022-10-23] VITALS: Ht 165.1 cm; Wt 96.2 kg
[2022-10-23] MEDS ORDERED: KETOROLAC 30 MG/ML 1ML VIAL IV ONE (19:35)
[2022-10-23] MEDS ORDERED: METHOCARBAMOL 1,000 MG/10 ML VIAL IV ONE (19:35)
[2022-10-23] MEDS ORDERED: dexAMETHasone 20MG/5ML VIAL IV ONE (19:35)
[2022-10-23 20:35] LABS: BASO # 0.1 10^3/uL (0.0-0.2); BASO % 0.5 % (0.0-1.0); EOS # 0.4 10^3/uL (0.0-0.5); EOS % 3.3 % (0.0-3.0); HEMATOCRIT 40.4 % (36.0-47.0); HEMOGLOBIN 13.3 g/dl (12.0-15.5); LYMPH # 3.2 10^3/uL (1.5-5.0); LYMPH % 28.4 % (24.0-44.0); MEAN CORPUSCULAR HEMOGLOBIN 31.8 pg (27.0-33.0); MEAN CORPUSCULAR HGB CONC 32.9 g/dl (32.0-36.5); MEAN CORPUSCULAR VOLUME 96.7 fl (80.0-96.0); MONO # 0.7 10^3/uL (0.0-0.8); MONO % 6.6 % (2.0-8.0); NEUTROPHILS # 6.8 10^3/uL (1.5-8.5); NEUTROPHILS % 60.9 % (36.0-66.0); PLATELET COUNT, AUTOMATED 290 10^3/uL (150-450); RED BLOOD COUNT 4.18 10^6/uL (4.00-5.40); WHITE BLOOD COUNT 11.1 10^3/uL (4.0-10.0)
[2022-10-23 20:53] LABS: CK-MB VALUE MASS 1.7 NG/ML (<3.6)
[2022-10-23 20:55] LABS: CPK CREATINE PHOSPHOKINASE 261 U/L (34-145); MB/CK RELATIVE INDEX 0.65 (< OR =4)
[2022-10-23] MEDS ORDERED: MEDR4PAK PO (23:04)
[2022-10-23] MEDS ORDERED: METH-1164 PO (23:04)
[2022-10-23] MEDS ORDERED: IBUP-1022 PO (23:04)
[2022-10-23 23:29] VITALS: BP 117/85; TEMP 98.4; O2SAT 100
== END 2022-10-23 23:32 | disposition home or self-care (01) ==
LOC: M ED 14:14
DX: M54.2 Cervicalgia (principal); M54.12 Radiculopathy, cervical region; J45.909 Unspecified asthma, uncomplicated; Z88.0 Allergy status to penicillin; Z88.1 Allergy status to other antibiotic agents; Z79.51 Long term (current) use of inhaled steroids; Z79.899 Other long term (current) drug therapy
CPT/HCPCS: 72052; 72125; 80047; 82550; 82553; 85025; 93005; 96374; 96375; 99284; J1100; J1885; J2800

== ENCOUNTER → 2022-12-02 | Outpatient (REF) | payer OTHER ==
[~2022-12-02] MED LIST changes: +IBUP-1022 PO; +MEDR4PAK PO; +METH-1164 PO
== END ==
LOC: M SFHCWAGY 13:25
PROVIDERS: ATTEND Nurse Practitioner Family
DX: Z12.4 Encounter for screening for malignant neoplasm of cervix (principal); Z01.419 Encounter for gynecological examination (general) (routine) without abnormal findings; Z77.9 Other contact with and (suspected) exposures hazardous to health

== ENCOUNTER 2022-12-10 16:26 | Emergency (ER) | payer OTHER ==
[~2022-12-10] VITALS: Ht 165.1 cm; Wt 93.6 kg
[2022-12-10] MEDS ORDERED: ACET-683 PO (16:38)
[2022-12-10] MEDS ORDERED: VYVA50CA4 (16:38)
[2022-12-10] MEDS ORDERED: LIDOCAINE 5% (LIDODERM) PATCH TD ONE (18:10)
[2022-12-10] MEDS ORDERED: KETOROLAC 60MG 2ML VIAL IM ONE (18:40)
[2022-12-10] MEDS ORDERED: methocarbamoL 500 MG TAB PO ONE (18:40)
[2022-12-10] MEDS ORDERED: predniSONE 20 MG TAB PO ONE (18:40)
[2022-12-10] MEDS ORDERED: diazePAM 5MG TABLET PO ONE (19:25)
[2022-12-10] MEDS ORDERED: ONDANSETRON 4MG 2ML VIAL IV ONE (20:30)
[2022-12-10] MEDS ORDERED: MORPHINE 4 MG/ML 1ML VIAL IV ONE (20:30)
[2022-12-10 22:13] VITALS: BP 141/82; TEMP 99.1; O2SAT 97
[2022-12-10] MEDS ORDERED: METH-1164 PO (23:11)
[2022-12-10] MEDS ORDERED: LIDO5DIS41 TOP (23:11)
[2022-12-10] MEDS ORDERED: IBUP-1022 PO (23:11)
[2022-12-10] MEDS ORDERED: MEDR4PAK PO (23:11)
[2022-12-11 10:01] LABS: CPK CREATINE PHOSPHOKINASE 112 U/L (30-170)
== END 2022-12-10 23:29 | disposition home or self-care (01) ==
LOC: M ED 16:26
DX: M50.20 Other cervical disc displacement, unspecified cervical region (principal); F90.9 Attention-deficit hyperactivity disorder, unspecified type; J45.909 Unspecified asthma, uncomplicated; F12.90 Cannabis use, unspecified, uncomplicated; Z79.899 Other long term (current) drug therapy; Z88.0 Allergy status to penicillin; Z88.1 Allergy status to other antibiotic agents; Z88.8 Allergy status to other drugs, medicaments and biological substances
CPT/HCPCS: 72141; 80047; 82550; 84702; 93005; 96372; 96374; 96375; 99284; J1885; J2405; J7512

== ENCOUNTER 2022-12-12 10:21 | Emergency (ER) | payer OTHER ==
[~2022-12-12] VITALS: Ht 165.1 cm; Wt 93.6 kg
[~2022-12-12 10:21] MED LIST changes: +ACET-683 PO; +LIDO5DIS41 TOP; +VYVA50CA4
[2022-12-12] MEDS ORDERED: CETI-24 (10:28)
[2022-12-12] MEDS ORDERED: ONDANSETRON 4MG 2ML VIAL IV ONE (11:30)
[2022-12-12] MEDS ORDERED: MORPHINE 4 MG/ML 1ML VIAL IV ONE (11:30)
[2022-12-12] MEDS ORDERED: GABAPENTIN 100 MG CAP PO ONE (11:30)
[2022-12-12] MEDS ORDERED: PERC5TAB12 PO (12:40)
[2022-12-12 12:56] VITALS: BP 150/81; TEMP 97.5; O2SAT 95
== END 2022-12-12 13:05 | disposition home or self-care (01) ==
LOC: M ED 10:21
DX: M50.20 Other cervical disc displacement, unspecified cervical region (principal); F90.9 Attention-deficit hyperactivity disorder, unspecified type; J30.2 Other seasonal allergic rhinitis; Z79.899 Other long term (current) drug therapy; Z88.0 Allergy status to penicillin; Z88.8 Allergy status to other drugs, medicaments and biological substances; Z88.1 Allergy status to other antibiotic agents
CPT/HCPCS: 96374; 96375; 99283; J2405

== ENCOUNTER 2022-12-31 13:44 | Emergency (ER) | payer OTHER ==
[~2022-12-31] VITALS: Ht 165.1 cm; Wt 95.4 kg
[~2022-12-31 13:44] MED LIST changes: +CETI-24; +PERC5TAB12 PO
[2022-12-31 16:57] LABS: BASO % 0.3 % (0.0-1.0); EOS # 0.2 10^3/uL (0.0-0.5); EOS % 2.2 % (0.0-3.0); HEMATOCRIT 40.1 % (36.0-47.0); HEMOGLOBIN 13.4 g/dl (12.0-15.5); LYMPH # 2.3 10^3/uL (1.5-5.0); LYMPH % 24.2 % (24.0-44.0); MEAN CORPUSCULAR HEMOGLOBIN 32.2 pg (27.0-33.0); MEAN CORPUSCULAR HGB CONC 33.4 g/dl (32.0-36.5); MEAN CORPUSCULAR VOLUME 96.4 fl (80.0-96.0); MONO # 0.5 10^3/uL (0.0-0.8); MONO % 5.3 % (2.0-8.0); NEUTROPHILS # 6.4 10^3/uL (1.5-8.5); NEUTROPHILS % 67.9 % (36.0-66.0); PLATELET COUNT, AUTOMATED 364 10^3/uL (150-450); RED BLOOD COUNT 4.16 10^6/uL (4.00-5.40); WHITE BLOOD COUNT 9.4 10^3/uL (4.0-10.0)
[2022-12-31 17:19] LABS: ERYTHROCYTE SEDIMENTATION RATE 24 mm/hr (0-20)
[2022-12-31 17:24] LABS: C REACTIVE PROTEIN QUANTITATIV < 0.40 MG/DL (<1.0)
[2022-12-31 17:28] LABS: BLOOD UREA NITROGEN 8 MG/DL (9-23); CARBON DIOXIDE LEVEL 28 MMOL/L (20-31); CHLORIDE LEVEL 102 MMOL/L (98-107); CREATININE FOR GFR 0.57 MG/DL (0.55-1.30); GLOMERULAR FILTRATION RATE > 60.0 (>58); GLUCOSE, FASTING 84 MG/DL (60-100); POTASSIUM SERUM 4.9 MMOL/L (3.5-5.1); SODIUM LEVEL 140 MMOL/L (136-145)
[2022-12-31] MEDS ORDERED: ONDANSETRON 4MG 2ML VIAL IV ONE ×2 (17:30→23:15)
[2022-12-31] MEDS ORDERED: NS 1,000 ML IV ONE (17:30)
[2022-12-31] MEDS ORDERED: KETOROLAC 30 MG/ML 1ML VIAL IV ONE (17:30)
[2022-12-31] MEDS ORDERED: GABAPENTIN 300 MG CAP PO ONE (17:30)
[2022-12-31] MEDS ORDERED: ISOVUE-370 76% 100ML VIAL As Ordered ONE (17:35)
[2022-12-31] MEDS ORDERED: diazePAM 10MG/2ML SYRINGE IV ONE (18:35)
[2022-12-31 19:28] LABS: RSV AMPLIFICATION NEGATIVE (NEGATIVE)
[2022-12-31] MEDS ORDERED: MORPHINE 4 MG/ML 1ML VIAL IV ONE (23:05)
[2023-01-01 00:31] VITALS: BP 148/92; TEMP 98.4; O2SAT 98
== END 2023-01-01 00:39 | disposition short-term general hospital (02) ==
LOC: M ED 13:44
DX: G97.82 Other postprocedural complications and disorders of nervous system (principal); J30.2 Other seasonal allergic rhinitis; F31.9 Bipolar disorder, unspecified; F43.10 Post-traumatic stress disorder, unspecified; F90.9 Attention-deficit hyperactivity disorder, unspecified type; F41.9 Anxiety disorder, unspecified; F32.A Depression, unspecified; Z88.0 Allergy status to penicillin; Z88.1 Allergy status to other antibiotic agents; Z88.8 Allergy status to other drugs, medicaments and biological substances
CPT/HCPCS: 70491; 72125; 80048; 85025; 85652; 86140; 87631; 96374; 96375; 96376; 99284; J1885; J2405; J3360; Q9967

== ENCOUNTER → 2023-03-18 | Outpatient (REF) | payer OTHER | LOC: M SFHCWAGY 15:21 | PROVIDERS: ATTEND Nurse Practitioner Family | DX: Z12.4 Encounter for screening for malignant neoplasm of cervix (principal); R87.615 Unsatisfactory cytologic smear of cervix ==

== ENCOUNTER 2025-02-07 13:01 | Emergency (ER) | payer OTHER ==
[~2025-02-07] VITALS: Ht 165.1 cm; Wt 87.2 kg
[~2025-02-07 13:01] MED LIST changes: -IBUP-1022 PO; +IBUP600T42 PO; +LIDO1ADH93 TOP; -LIDO5DIS41 TOP; +ONDA-282 PO; -ONDA4TAB6 PO
[2025-02-07] MEDS ORDERED: BACT800T5 PO (14:33)
[2025-02-07] MEDS ORDERED: LOTR1CRE12 TOP (14:33)
[2025-02-07 14:40] VITALS: BP 135/94; TEMP 97.4; O2SAT 98
== END 2025-02-07 14:43 | disposition home or self-care (01) ==
LOC: M ED 14:05
DX: B35.4 Tinea corporis (principal); L03.113 Cellulitis of right upper limb; J45.909 Unspecified asthma, uncomplicated; Z88.0 Allergy status to penicillin; Z88.1 Allergy status to other antibiotic agents

== ENCOUNTER → 2025-02-09 | Outpatient (CLI) | payer OTHER ==
[~2025-02-09] MED LIST changes: +BACT800T5 PO; +LOTR1CRE12 TOP
[2025-02-09 17:38] LABS: PLATELET COUNT, AUTOMATED 312 10^3/uL (150-450)
[2025-02-09 17:41] LABS: TOTAL 25(OH) VITAMIN D 35.4 NG/ML (20.0-100.0)
== END ==
LOC: M PLALAB 14:31
DX: L03.113 Cellulitis of right upper limb (principal)